=== PATIENT | female | born 1940 | race Caucasian/White ===

== ENCOUNTER 2016-12-12 07:07 | Day surgery (SDC) | payer OTHER ==
[2016-12-09 15:15] VITALS: BMI 22.6
[2016-12-12] MEDS ORDERED: PROPOFOL 20 ML ONE ×2 (07:41)
[2016-12-12] MEDS ORDERED: LIDOCAINE HCL 2% (20ML MULTI-DOSE VIAL) NR ONE (07:41)
[2016-12-12 09:19] VITALS: TEMP 97.8
[2016-12-12 11:36] VITALS: BP 127/60; PULSE 71
--- NOTE | 2016-12-13 12:27 | PATH ---
Surgical Pathology Report Patient Name: AIXA RECINOS [facility]. Rec. #: [id number] /Age/Gender: 1940 (Age: 76) / F Account: [id number] Location: [facility]SU-ENDOSCOPY Taken: 12/12/2016 Received: 12/12/2016 Reported: 12/13/2016 Physicians: Don Rizzo M.D. Specimen(s) Received A: BX POLYP RECTUM B: BX RECTAL SIGMOID POLYP C: BX TRANSVERSE COLON POLYP Clinical History History of colon polyps Redundant colon, colon polyps, grade 1 hemorrhoids Final Diagnosis A. RECTUM, POLYP, BIOPSY: FRAGMENTS OF HYPERPLASTIC POLYP. B. COLON, RECTOSIGMOID POLYP, BIOPSY: HYPERPLASTIC POLYP. C. COLON, TRANSVERSE, POLYP, BIOPSY: TUBULAR ADENOMA. Electronically Signed Guille Reynolds M.D. Gross Description A. Received in formalin, labeled "biopsy polyp rectum" are 2 gr, irregular portions of soft tissue averaging 0.2 cm in greatest dimension. The specimens are submitted in toto in one cassette. B. Received in formalin, labeled "biopsy rectal sigmoid polyp" are 2 gr, irregular portions of soft tissue averaging 0.3 cm in greatest dimension. The specimens are submitted in toto in one cassette. C. Received in formalin, labeled "biopsy transverse colon" are 3 gr, irregular portions of soft tissue ranging from 0.2-0.4 cm in greatest dimension. The specimens are submitted in toto in one cassette. /12/12/201612/12/2016
== END 2016-12-12 10:25 | disposition home or self-care (01) ==
LOC: JASU-ENDO 07:07
PROVIDERS: ATTEND Internal Medicine Gastroenterology
PROC: 0DBN8ZX Excision of Sigmoid Colon, Via Natural or Artificial Opening Endoscopic, Diagnostic (ICD-10-PCS; 2016-12-12)
PROC: 0DBL8ZX Excision of Transverse Colon, Via Natural or Artificial Opening Endoscopic, Diagnostic (ICD-10-PCS; 2016-12-12)
PROC: 0DBP8ZX Excision of Rectum, Via Natural or Artificial Opening Endoscopic, Diagnostic (ICD-10-PCS; principal; 2016-12-12 08:00)
DX: Z12.11 Encounter for screening for malignant neoplasm of colon (principal); Z86.010 Personal history of colon polyps; D12.3 Benign neoplasm of transverse colon; D12.7 Benign neoplasm of rectosigmoid junction; K62.1 Rectal polyp; K64.8 Other hemorrhoids
CPT/HCPCS: 88305-TC

== ENCOUNTER 2021-02-12 21:11 | Emergency (ER) | payer OTHER ==
[2021-02-12 21:31] VITALS: BP 118/60; PULSE 84; TEMP 98.3; BMI 20.6
[2021-02-12 22:38] LABS: BASO % 0.3 % (0-2.0); HEMATOCRIT 41.8 % (32.4-45.2); LYMPH % 11.4 % (8-40); MCH 30.4 pg (25.7-33.7); MCHC 33.4 g/dl (32.0-36.0); MEAN CELL VOLUME 91.1 fl (80-96); MEAN PLT VOLUME 8.6 fl (7.5-11.1); MONO % 5.9 % (3.8-10.2); NEUT % 82.4 % (42.8-82.8); PLATELET COUNT 236 10^3/uL (134-434); RBC 4.59 M/mm3 (3.60-5.2); RDW 14.5 % (11.6-15.6); WHITE BLOOD COUNT 7.9 K/mm3 (4.0-10.0)
[2021-02-12 22:58] LABS: CHLORIDE 98 mmol/L (98-107); SODIUM 136 mmol/L (136-145)
[2021-02-12 23:01] LABS: ANION GAP 10 MMOL/L (8-16); BLOOD UREA NITROGEN 23.6 mg/dL (7-18); CALCIUM 10.2 mg/dL (8.5-10.1); CO2 28 mmol/L (21-32); LIPASE 689 U/L (73-393)
[2021-02-12 23:02] LABS: GLUCOSE,RANDOM 148 mg/dL (74-106)
[2021-02-12 23:04] LABS: SGOT/AST 23 U/L (15-37); SGPT/ALT 28 U/L (13-61)
[2021-02-12 23:06] LABS: BILIRUBIN,TOTAL 0.7 mg/dL (0.2-1); TOT PROT 7.3 g/dl (6.4-8.2)
[2021-02-12 23:07] LABS: ALK PHOS 109 U/L (45-117)
[2021-02-12 23:30] LABS: EPI CELLS 18 /uL (0-25.1); HYALINE CASTS 2 /uL (0-3.1); URINE APPEARANCE CLEAR; URINE BACTERIA 47 /uL (0-1359); URINE BILIRUBIN NEGATIVE (NEGATIVE); URINE COLOR YELLOW; URINE GLUCOSE (UA) NEGATIVE (NEGATIVE); URINE KETONE 1+ (NEGATIVE); URINE LEUK ESTERASE 2+ (NEGATIVE); URINE NITRITE NEGATIVE (NEGATIVE); URINE PROTEIN NEGATIVE (NEGATIVE); URINE RBC 8 /uL (0-23.9); URINE WBC 124 /uL (0-25.8)
== END 2021-02-13 01:12 | disposition left against medical advice (07) ==
LOC: JER 21:11
DX: R10.13 Epigastric pain (principal)
CPT/HCPCS: 36415; 74177-TC; 80053; 81003; 82550; 82553; 83690; 84484; 85025; 93005; 93010; 99285-25; Q9967

== ENCOUNTER 2021-02-14 08:14 | Emergency (ER) | payer OTHER ==
[2021-02-14 08:27] VITALS: TEMP 97.9; BMI 20.6
[2021-02-14] MEDS ORDERED: LACTATED RINGERS SOLUTION 1000 ML INFUS.BAG IV ONE (08:51)
[2021-02-14 09:07] LABS: BASO % 0.6 % (0-2.0); HEMATOCRIT 41.7 % (32.4-45.2); HEMOGLOBIN 13.6 GM/dL (10.7-15.3); LYMPH % 19.1 % (8-40); MCH 30.2 pg (25.7-33.7); MCHC 32.7 g/dl (32.0-36.0); MEAN CELL VOLUME 92.3 fl (80-96); MEAN PLT VOLUME 9.1 fl (7.5-11.1); MONO % 8.9 % (3.8-10.2); NEUT % 70.4 % (42.8-82.8); PLATELET COUNT 224 10^3/uL (134-434); RBC 4.51 M/mm3 (3.60-5.2); RDW 14.3 % (11.6-15.6); WHITE BLOOD COUNT 6.6 K/mm3 (4.0-10.0)
[2021-02-14 09:28] LABS: CALCIUM 9.8 mg/dL (8.5-10.1)
[2021-02-14 09:29] LABS: ALBUMIN 3.7 g/dl (3.4-5.0); BLOOD UREA NITROGEN 17.8 mg/dL (7-18)
[2021-02-14 09:31] LABS: CREATININE 0.8 mg/dL (0.55-1.3)
[2021-02-14 09:33] LABS: BILIRUBIN,TOTAL 0.5 mg/dL (0.2-1); TOT PROT 6.6 g/dl (6.4-8.2)
[2021-02-14 12:57] VITALS: BP 140/77; PULSE 66
[2021-02-14] MEDS ORDERED: ACETAMINOPHEN 1000 MG/100 ML VIAL (NON FORMULARY) IVPB ONE (13:26)
[2021-02-14] MEDS ORDERED: ACETAMINOPHEN INJECTION 100 ML IVPB ONE (13:42)
== END 2021-02-14 14:21 | disposition home or self-care (01) ==
LOC: JER 08:14
PROC: 3E033NZ Introduction of Analgesics, Hypnotics, Sedatives into Peripheral Vein, Percutaneous Approach (ICD-10-PCS; principal; 2021-02-14)
DX: K85.90 Acute pancreatitis without necrosis or infection, unspecified (principal); K86.89 Other specified diseases of pancreas
CPT/HCPCS: 36415; 71046-TC-FY; 74177-TC; 76705-TC; 80053; 82550; 82553; 83605; 83690; 84484; 85025; 93005; 93010; 99285-25; J0131; Q9967

== ENCOUNTER 2021-10-12 19:36 | Observation (INO) | payer OTHER ==
[2021-10-12 19:51] VITALS: BMI 20.8
[2021-10-12] MEDS ORDERED: FAMOTIDINE 20 MG TABLET PO ONE (20:25)
[2021-10-12] MEDS ORDERED: FAMOTIDINE 20 MG TABLET ONE (20:40)
[2021-10-12 20:50] LABS: BASO % 0.4 % (0-2.0); EOS % 0.6 % (0-4.5); HEMATOCRIT 40.4 % (32.4-45.2); HEMOGLOBIN 13.1 GM/dL (10.7-15.3); LYMPH % 13.7 % (8-40); MCH 29.8 pg (25.7-33.7); MCHC 32.4 g/dl (32.0-36.0); MEAN CELL VOLUME 91.8 fl (80-96); MEAN PLT VOLUME 9.1 fl (7.5-11.1); MONO % 7.6 % (3.8-10.2); NEUT % 77.7 % (42.8-82.8); PLATELET COUNT 221 10^3/uL (134-434); RDW 14.1 % (11.6-15.6); WHITE BLOOD COUNT 8.6 K/mm3 (4.0-10.0)
[2021-10-12 21:17] LABS: CALCIUM 10.2 mg/dL (8.5-10.1)
[2021-10-12 21:18] LABS: ALBUMIN 3.8 g/dl (3.4-5.0); BLOOD UREA NITROGEN 14.1 mg/dL (7-18)
[2021-10-12 21:21] LABS: CREATININE 0.7 mg/dL (0.55-1.3)
[2021-10-12 21:22] LABS: TOT PROT 6.5 g/dl (6.4-8.2)
[2021-10-12 21:23] LABS: BILIRUBIN,TOTAL 0.4 mg/dL (0.2-1)
[2021-10-13 07:00] LABS: EOS % 1.7 % (0-4.5); HEMATOCRIT 39.7 % (32.4-45.2); HEMOGLOBIN 13.2 GM/dL (10.7-15.3); MCH 30.2 pg (25.7-33.7); MCHC 33.2 g/dl (32.0-36.0); MEAN CELL VOLUME 90.8 fl (80-96); MEAN PLT VOLUME 8.8 fl (7.5-11.1); MONO % 9.8 % (3.8-10.2); NEUT % 58.5 % (42.8-82.8); PLATELET COUNT 205 10^3/uL (134-434); RBC 4.37 M/mm3 (3.60-5.2); RDW 14.2 % (11.6-15.6); WHITE BLOOD COUNT 6.2 K/mm3 (4.0-10.0)
[2021-10-13 07:32] LABS: BLOOD UREA NITROGEN 12.7 mg/dL (7-18)
[2021-10-13 07:33] LABS: CALCIUM 9.9 mg/dL (8.5-10.1)
[2021-10-13 07:34] LABS: ALBUMIN 3.8 g/dl (3.4-5.0); MAGNESIUM 2.6 mg/dL (1.8-2.4)
[2021-10-13 07:37] LABS: CREATININE 0.7 mg/dL (0.55-1.3)
[2021-10-13 07:39] LABS: BILIRUBIN,TOTAL 0.8 mg/dL (0.2-1); TOT PROT 6.4 g/dl (6.4-8.2)
[2021-10-13] MEDS ORDERED: FAMOTIDINE 20 MG/50 ML IVPB 20 MG/50 ML MG IVPB ONE ×2 (11:56→22:04)
[2021-10-13] MEDS ORDERED: LEVOTHYROXINE NA 25 MCG TABLET (FP) ONE (11:57)
[2021-10-13] MEDS ORDERED: LISINOPRIL 5 MG TABLET ONE (11:57)
[2021-10-13] MEDS: FAMOTIDINE 20 MG/50 ML IVPB 20 MG/50 ML MG IVPB SCH ×2 (11:57→22:24)
[2021-10-13] MEDS: LISINOPRIL 10 MG TABLET PO SCH (11:57)
[2021-10-13] MEDS: LEVOTHYROXINE NA 25 MCG TABLET (FP) PO SCH (11:58)
[2021-10-14] MEDS: LEVOTHYROXINE NA 25 MCG TABLET (FP) PO SCH (06:09)
[2021-10-14] MEDS ORDERED: REGADENOSON 0.4 MG/5 ML PRE-FILLED SYRINGE IVPUSH ONE ×2 (09:33→10:00)
[2021-10-14] MEDS: FAMOTIDINE 20 MG/50 ML IVPB 20 MG/50 ML MG IVPB SCH (10:55)
[2021-10-14] MEDS: LISINOPRIL 10 MG TABLET PO SCH (10:55)
[2021-10-14 15:15] VITALS: BP 128/64; PULSE 68; TEMP 98.4
== END 2021-10-14 17:04 | disposition home or self-care (01) ==
LOC: JER 19:36 → JERBED 23:52 → J4W 10-14 02:28
PROVIDERS: ADMIT Internal Medicine; ATTEND Family Medicine
PROC: 3E033GC Introduction of Other Therapeutic Substance into Peripheral Vein, Percutaneous Approach (ICD-10-PCS; principal; 2021-10-12)
DX: I24.9 Acute ischemic heart disease, unspecified (principal); R10.13 Epigastric pain; I10 Essential (primary) hypertension; E03.9 Hypothyroidism, unspecified; R74.9 Abnormal serum enzyme level, unspecified; Z20.822 Contact with and (suspected) exposure to COVID-19
CPT/HCPCS: 36415; 71045-TC-FY; 74177-TC; 78452-TC; 80053; 80061; 83605; 83690; 83735; 84443; 84484; 85025; 93005; 93010; 93017; 96374; 99285-25; A9502; C9803-CS; G0378; J2785; U0003; U0005

== ENCOUNTER 2023-01-24 08:40 | Emergency (ER) | payer OTHER ==
[2023-01-24 08:48] VITALS: BMI 20.8
[2023-01-24] MEDS ORDERED: MECLIZINE HCL 25 MG TABLET (FP) PO ONE (09:31)
[2023-01-24] MEDS ORDERED: MECLIZINE HCL 25 MG TABLET (FP) ONE (09:52)
[2023-01-24 10:23] LABS: BASO % 0.4 % (0-2.0); EOS % 0.3 % (0-4.5); HEMOGLOBIN 14.7 GM/dL (10.7-15.3); MCH 29.8 pg (25.7-33.7); MEAN CELL VOLUME 93.3 fl (80-96); MEAN PLT VOLUME 9.8 fl (7.5-11.1); MONO % 6.3 % (3.8-10.2); PLATELET COUNT 220 10^3/uL (134-434); RBC 4.93 M/mm3 (3.60-5.2); RDW 14.1 % (11.6-15.6); WHITE BLOOD COUNT 9.2 K/mm3 (4.0-10.0)
[2023-01-24 10:45] LABS: BLOOD UREA NITROGEN 15.2 mg/dL (7-18)
[2023-01-24 10:49] LABS: CREATININE 0.7 mg/dL (0.55-1.3)
[2023-01-24 10:50] LABS: BILIRUBIN,TOTAL 0.7 mg/dL (0.2-1); TOT PROT 6.9 g/dl (6.4-8.2)
[2023-01-24 13:16] VITALS: BP 143/72; PULSE 69; RESP 20; TEMP 98.3
== END 2023-01-24 13:22 | disposition home or self-care (01) ==
LOC: JER 08:40
DX: R42 Dizziness and giddiness (principal); R11.0 Nausea; R00.1 Bradycardia, unspecified; I10 Essential (primary) hypertension
CPT/HCPCS: 36415; 70450-TC; 70496-TC; 70498-TC; 71046-TC-FY; 80053; 84484; 85025; 93005; 93010; 99285-25; Q9967

== ENCOUNTER → 2023-02-21 | Day surgery (SDC) | payer OTHER | END | disposition home or self-care (01) | LOC: JRADIR 10:26 | PROVIDERS: ATTEND Internal Medicine Endocrinology, Diabetes & Metabolism | PROC: 0GBG3ZX Excision of Left Thyroid Gland Lobe, Percutaneous Approach, Diagnostic (ICD-10-PCS; principal; 2023-02-21) | DX: E04.1 Nontoxic single thyroid nodule (principal) | CPT/HCPCS: 10005; 76942; 88173; 88305-TC ==